=== PATIENT | female | born 2000 | race Two or more races ===

== ENCOUNTER 2024-10-06 11:13 | Emergency (ER) | payer OTHER ==
[~2024-10-06] VITALS: Ht 160 cm; Wt 83.9 kg
[2024-10-06] MEDS ORDERED: PRENATAL TABLE1 EAC1 PO (11:52)
[2024-10-06] MEDS ORDERED: 0.9 % SODIUM CHLORIDE 1,000 ML IV SCH (14:15)
[2024-10-06] MEDS ORDERED: HYOSCYAMINE SULFATE 0.125 MG TAB.SUBL SL ONE (14:15)
== END 2024-10-06 15:46 | disposition left against medical advice (07) ==
LOC: ER 11:16
DX: O26.891 Other specified pregnancy related conditions, first trimester (principal); R19.7 Diarrhea, unspecified; Z3A.13 13 weeks gestation of pregnancy; J45.909 Unspecified asthma, uncomplicated

== ENCOUNTER 2024-11-01 11:21 | Emergency (ER) | payer OTHER ==
[~2024-11-01] VITALS: Ht 160 cm; Wt 86.6 kg
[~2024-11-01 11:21] MED LIST: PRENATAL TABLE1 EAC1 PO
[2024-11-01] MEDS ORDERED: ECOTRIN81 MG (11:25)
[2024-11-01 11:26] VITALS: BP 113/77; O2SAT 99
[2024-11-01] MEDS ORDERED: LABETALOL HCL100 MG PO (11:26)
[2024-11-01 12:24] LABS: HEMATOCRIT 35.4 % (36.0-45.00); HEMOGLOBIN 12.3 g/dL (12.0-15.00); MEAN CELL VOLUME 88.5 fL (80.00-100.00); MEAN CORPUSCULAR HEMOGLOBIN 30.7 pg (27.00-32.0); MEAN CORPUSCULAR HGB CONC 34.7 g/dl (32.0-36.0); PLATELET COUNT 287 K/uL (150-450)
[2024-11-01 13:02] LABS: CALCIUM 9.1 mg/dL (8.5-10.1); CREATININE SERUM 0.42 mg/dL (0.55-1.02); GFR 182.38; POTASSIUM 3.27 mEq/L (3.5-5.1)
[2024-11-01 13:40] LABS: PH,URINE 6.5 (5.0-8.0); URINE APPEARANCE Clear; URINE BILIRRUBIN Negative (NEGATIVE); URINE BLOOD Negative; URINE COLOR Yellow; URINE GLUCOSE Negative (NEGATIVE); URINE KETONE Negative (NEGATIVE); URINE LEUKOCYTE Trace; URINE NITRATE Negative; URINE PROTEIN Negative (NEGATIVE); URINE UROBILINOGEN 0.2 E.U./dl
[2024-11-01 13:44] LABS: URINE BACTERIA 658.4 uL (0.0-1933); URINE EPITHELIAL CELLS 49.7 uL (0.0-38.8); URINE RBC 4.5 uL (0.0-20.8); URINE WBC 25.9 uL (0.0-23.2)
[2024-11-01 14:04] LABS: URINE CAST 0.14 uL (0.0-1.40)
== END 2024-11-01 14:45 | disposition home or self-care (01) ==
LOC: ER 11:22
PROVIDERS: General Practice
DX: O26.892 Other specified pregnancy related conditions, second trimester (principal); R51.9 Headache, unspecified; Z3A.16 16 weeks gestation of pregnancy; Z87.09 Personal history of other diseases of the respiratory system

== ENCOUNTER 2025-01-13 11:39 | Outpatient (CLI) | payer OTHER ==
[2025-01-13 11:11] VITALS: BP 112/75
[~2025-01-13 11:39] MED LIST changes: +ECOTRIN81 MG; +LABETALOL HCL100 MG PO
[2025-01-13 12:29] LABS: BASO % 0.4 % (0.1-1.2); EOS # 0.14 (0.04-0.54); EOS % 1.5 % (0.7-7.0); HEMATOCRIT 30.7 % (34.1-44.9); HEMOGLOBIN 10.4 g/dL (11.2-15.7); LYMPH # 2.23 (1.18-3.74); LYMPH % 23.4 % (19.3-53.1); MEAN CORPUSCULAR HEMOGLOBIN 29.1 pg (25.6-32.2); MONO # 0.82 (0.24-0.82); MONO % 8.6 % (4.7-12.5); NEUT # 6.25 (1.56-6.13); NEUT % 65.6 % (34.0-71.1); PLATELET COUNT 336 K/uL (163-369); RED BLOOD COUNT 3.57 M/uL (3.93-5.22); RED CELL DISTRIBUTION WIDTH 13.2 % (11.6-14.4)
[2025-01-13 12:32] LABS: PH,URINE 6.5 (5.0-8.0); URINE APPEARANCE Clear; URINE BILIRRUBIN Negative (NEGATIVE); URINE BLOOD Negative; URINE COLOR Yellow; URINE GLUCOSE Negative (NEGATIVE); URINE KETONE Negative (NEGATIVE); URINE LEUKOCYTE Trace; URINE NITRATE Negative; URINE PROTEIN Negative (NEGATIVE); URINE UROBILINOGEN 0.2 E.U./dl
[2025-01-13 12:36] LABS: URINE BACTERIA 676.8 uL (0.0-1933); URINE EPITHELIAL CELLS 50.8 uL (0.0-38.8); URINE RBC 5.8 uL (0.0-20.8); URINE WBC 34.5 uL (0.0-23.2)
[2025-01-13] MEDS ORDERED: BUTALB/ACETAMINOPHEN/CAFFEINE 1 TAB TABLET PO PRN (15:00)
[2025-01-13 15:50] VITALS: BP 104/67
[2025-01-13 19:19] VITALS: BP 97/65
[2025-01-13 20:47] VITALS: BP 97/65
== END 2025-01-13 20:47 | disposition home or self-care (01) ==
LOC: OBS/DEL 11:39
PROVIDERS: ATTEND Obstetrics & Gynecology
DX: O26.892 Other specified pregnancy related conditions, second trimester (principal); Z3A.27 27 weeks gestation of pregnancy

== ENCOUNTER 2025-02-11 23:08 | Inpatient (IN) | payer OTHER ==
[~2025-02-11] VITALS: Ht 160 cm; Wt 86.2 kg
[2025-02-11 22:12] VITALS: BP 100/65
[2025-02-11] MEDS ORDERED: RINGERS SOLUTION,LACTATED 1,000 ML IV SCH (23:15)
[2025-02-11 23:53] VITALS: BP 103/64
[2025-02-12] VITALS (7 sets, daily range): BP systolic 91–100; BP diastolic 52–67; O2SAT 98
[2025-02-12 00:18] LABS: BASO % 0.3 % (0.1-1.2); EOS # 0.14 (0.04-0.54); EOS % 1.5 % (0.7-7.0); LYMPH # 3.00 (1.18-3.74); LYMPH % 31.1 % (19.3-53.1); MEAN PLATELET VOLUME 9.90 fl (9.4-12.4); MONO # 0.72 (0.24-0.82); MONO % 7.5 % (4.7-12.5); NEUT # 5.72 (1.56-6.13); NEUT % 59.3 % (34.0-71.1); RED CELL DISTRIBUTION WIDTH 13.6 % (11.6-14.4)
[2025-02-12 00:19] LABS: URINE APPEARANCE Cloudy; URINE BILIRRUBIN Negative (NEGATIVE); URINE BLOOD Negative; URINE COLOR Yellow; URINE GLUCOSE Negative (NEGATIVE); URINE KETONE Negative (NEGATIVE); URINE LEUKOCYTE Trace; URINE NITRATE Negative; URINE PROTEIN Negative (NEGATIVE); URINE UROBILINOGEN 1.0 E.U./dl
[2025-02-12 00:20] LABS: URINE BACTERIA 185.8 uL (0.0-1933); URINE EPITHELIAL CELLS 7.3 uL (0.0-38.8); URINE WBC 12.1 uL (0.0-23.2)
[2025-02-12 00:42] LABS: URINE CAST 0.00 uL (0.0-1.40); URINE RBC 1.3 uL (0.0-20.8)
[2025-02-12] MEDS ORDERED: ACETAMINOPHEN 500 MG GEL..CAP PO PRN (10:45)
[2025-02-12] MEDS ORDERED: SOD FERRIC GLUC COMPLX/SUCROSE 125 MG in 0.9 % SODIUM CHLORIDE 100 ML IV SCH ×2 (21:46→22:22)
[2025-02-13 03:28] VITALS: BP 91/58
[2025-02-13 06:20] VITALS: BP 90/56; O2SAT 99
[2025-02-13] MEDS ORDERED: PNV,CALCIUM 72/IRON/FOLIC ACID 1 TAB TABLET PO SCH (09:00)
[2025-02-13 11:26] VITALS: BP 103/65
[2025-02-13 15:19] VITALS: BP 85/53
[2025-02-13 19:34] VITALS: BP 105/69
[2025-02-13 23:54] VITALS: BP 94/58
[2025-02-14 03:35] VITALS: BP 92/59
[2025-02-14 06:20] VITALS: BP 91/63; O2SAT 98
[2025-02-14 12:00] VITALS: BP 109/74
== END 2025-02-14 12:48 | disposition home or self-care (01) | DRG 833 ==
LOC: OBS/DEL 23:08 → LDR 02-12 21:34
PROVIDERS: Obstetrics & Gynecology Gynecology; ADMIT Obstetrics & Gynecology; ATTEND Obstetrics & Gynecology
PROC: 4A1HXCZ Monitoring of Products of Conception, Cardiac Rate, External Approach (ICD-10-PCS; principal; 2025-02-12)
PROC: BT43ZZZ Ultrasonography of Bilateral Kidneys (ICD-10-PCS; 2025-02-13)
PROC: BY4FZZZ Ultrasonography of Third Trimester, Single Fetus (ICD-10-PCS; 2025-02-13)
PROC: BU4CZZZ Ultrasonography of Uterus and Ovaries (ICD-10-PCS; 2025-02-13)
DX: O26.893 Other specified pregnancy related conditions, third trimester (principal); R10.2 Pelvic and perineal pain; O26.843 Uterine size-date discrepancy, third trimester; O36.8130 Decreased fetal movements, third trimester, not applicable or unspecified; O36.5930 Maternal care for other known or suspected poor fetal growth, third trimester, not applicable or unspecified; O28.3 Abnormal ultrasonic finding on antenatal screening of mother; O10.013 Pre-existing essential hypertension complicating pregnancy, third trimester; Z3A.31 31 weeks gestation of pregnancy

== ENCOUNTER 2025-04-09 21:36 | Inpatient (IN) | payer OTHER ==
[~2025-04-09] VITALS: Ht 160 cm; Wt 87.1 kg
[2025-04-09 21:24] VITALS: BP 123/68
[2025-04-09] MEDS ORDERED: RINGERS SOLUTION,LACTATED 1,000 ML IV SCH (22:00)
[2025-04-09 23:07] LABS: URINE APPEARANCE Clear; URINE BILIRRUBIN Negative (NEGATIVE); URINE BLOOD Negative; URINE COLOR Yellow; URINE GLUCOSE Negative (NEGATIVE); URINE KETONE Negative (NEGATIVE); URINE LEUKOCYTE Small; URINE NITRATE Negative; URINE PROTEIN Negative (NEGATIVE); URINE UROBILINOGEN 0.2 E.U./dl
[2025-04-09 23:10] LABS: URINE BACTERIA 524.3 uL (0.0-1933); URINE EPITHELIAL CELLS 18.3 uL (0.0-38.8); URINE WBC 43.0 uL (0.0-23.2)
[2025-04-09 23:12] LABS: BASO % 0.3 % (0.1-1.2); EOS # 0.09 (0.04-0.54); EOS % 0.9 % (0.7-7.0); LYMPH # 2.96 (1.18-3.74); LYMPH % 29.2 % (19.3-53.1); MEAN PLATELET VOLUME 11.30 fl (9.4-12.4); MONO # 0.83 (0.24-0.82); MONO % 8.2 % (4.7-12.5); NEUT # 6.17 (1.56-6.13); NEUT % 60.9 % (34.0-71.1); RED CELL DISTRIBUTION WIDTH 16.3 % (11.6-14.4)
[2025-04-09 23:21] VITALS: BP 133/77
[2025-04-09 23:23] LABS: URINE CAST 0.00 uL (0.0-1.40); URINE RBC 0.8 uL (0.0-20.8)
[2025-04-09 23:29] LABS: INR 1.0
[2025-04-09 23:35] LABS: ALT/SGPT 11.0 U/L (12-78); AST/SGOT 15.0 U/L (15-37); BILIRUBIN TOTAL 0.25 mg/dL (0.3-1.2); BUN CREA RATIO 11.0 (7.0-25.0); GFR 203.15; GLOBULINA 3.5 G/DL (2.4-3.5); GLUCOSE FASTING 97.0 mg/dL (65-100); OSMOLALITY SERUM 278.0 MOSM/KG (275-295)
[2025-04-09 23:38] LABS: CREATININE SERUM 0.38 mg/dL (0.55-1.02)
[2025-04-10] MEDS ORDERED: ERYTHROMYCIN BASE OPHT 1GM EACH TUBE OP ONE (00:15)
[2025-04-10] MEDS ORDERED: OXYTOCIN 10 UNITS/ML VIAL IV ONE (00:15)
[2025-04-10] MEDS ORDERED: KETOROLAC TROMETHAMINE 60 MG VIAL IM STA (01:41)
[2025-04-10] MEDS ORDERED: OXYTOCIN 1,000 ML IV SCH (01:45)
[2025-04-10] MEDS ORDERED: RINGERS SOLUTION,LACTATED 1,000 ML IV SCH (01:45)
[2025-04-10] MEDS ORDERED: CHLORHEXIDINE GLUCONATE 120 ML BOTTLE TOP SCH (01:45)
[2025-04-10] MEDS ORDERED: MORPHINE SULFATE 4 MG/ML CARTRIDGE IV PRN (02:00)
[2025-04-10] MEDS ORDERED: MORPHINE SULFATE 4 MG/ML VIAL IV ONE ×2 (02:35→03:05)
[2025-04-10 04:20] VITALS: BP 113/64
[2025-04-10 05:01] LABS: BASO % 0.2 % (0.1-1.2); EOS # 0.04 (0.04-0.54); EOS % 0.3 % (0.7-7.0); LYMPH # 2.05 (1.18-3.74); LYMPH % 15.7 % (19.3-53.1); MEAN PLATELET VOLUME 10.60 fl (9.4-12.4); MONO # 0.57 (0.24-0.82); MONO % 4.4 % (4.7-12.5); NEUT # 10.30 (1.56-6.13); NEUT % 78.9 % (34.0-71.1); RED CELL DISTRIBUTION WIDTH 16.3 % (11.6-14.4)
[2025-04-10 08:23] VITALS: BP 93/60
[2025-04-10] MEDS ORDERED: OxyCODONE HCL 5 MG TABLET (ROXICODONE) PO PRN (09:00)
[2025-04-10] MEDS ORDERED: ACETAMINOPHEN 325 MG TABLET PO PRN (09:00)
[2025-04-10 12:34] VITALS: BP 99/66
[2025-04-10 17:15] VITALS: BP 116/80
[2025-04-11] VITALS: BP 109/71
[2025-04-11 08:19] VITALS: BP 108/70
[2025-04-11 13:00] VITALS: BP 100/66
[2025-04-11 19:29] VITALS: BP 104/67
[2025-04-12 00:58] VITALS: BP 103/60
[2025-04-12 08:40] VITALS: BP 102/65; O2SAT 99
== END 2025-04-12 16:32 | disposition home or self-care (01) | DRG 785 ==
LOC: OBS/DEL 21:36 → LDR 23:25 → OB/GYN 23:25
PROVIDERS: ADMIT Obstetrics & Gynecology; ATTEND Obstetrics & Gynecology
PROC: 4A1HXCZ Monitoring of Products of Conception, Cardiac Rate, External Approach (ICD-10-PCS; 2025-04-09)
PROC: 0UB70ZZ Excision of Bilateral Fallopian Tubes, Open Approach (ICD-10-PCS; 2025-04-10)
PROC: 10D00Z1 Extraction of Products of Conception, Low, Open Approach (ICD-10-PCS; principal; 2025-04-10 07:00)
DX: O76 Abnormality in fetal heart rate and rhythm complicating labor and delivery (principal); O36.8330 Maternal care for abnormalities of the fetal heart rate or rhythm, third trimester, not applicable or unspecified; Z30.2 Encounter for sterilization; Z3A.39 39 weeks gestation of pregnancy; Z37.0 Single live birth